=== PATIENT | male | born 1955 | race Caucasian/White ===

== ENCOUNTER 2022-02-21 18:18 | Emergency (ER) | payer OTHER ==
[2022-02-21 20:04] LABS: HEMOGLOBIN 8.7 gm/dl (14.0-17.5); RED BLOOD COUNT 4.11 M/UL (4.20-5.50); WHITE BLOOD COUNT 12.6 K/UL (4.5-11.0)
[2022-02-21 20:39] LABS: BUN/CREATININE RATIO 36 (0-10)
[2022-02-22 05:41] LABS: HEMOGLOBIN 8.5 gm/dl (14.0-17.5); RED BLOOD COUNT 4.07 M/UL (4.20-5.50); WHITE BLOOD COUNT 10.9 K/UL (4.5-11.0)
[2022-02-22 06:21] LABS: BUN/CREATININE RATIO 28 (0-10)
[2022-02-22] MEDS ORDERED: PHENERGAN 25 MG25 M1 PO (06:48)
[2022-02-22] MEDS ORDERED: ZOFRAN ODT 4 MG4 MG SL (06:48)
== END 2022-02-22 09:55 | disposition home or self-care (01) ==
LOC: ER1 18:18
PROVIDERS: Emergency Medicine
DX: R10.84 Generalized abdominal pain (principal); Z20.822 Contact with and (suspected) exposure to COVID-19
CPT/HCPCS: 0240U; 36600; 80053; 81001; 82270; 82550; 82553; 82803; 83605; 83735; 83880; 84100; 84484; 85025; 87040; 87086; 93005; 96374; 96375; 96376; 99284; J2270; J2405; J2550; J7030; Q9967